=== PATIENT | female | born 1980 | race Caucasian/White ===

== ENCOUNTER 2016-08-17 12:17 | Emergency (ER) | payer BC ==
[2016-08-17] MEDS ORDERED: ONDANSETRON 4 MG TAB.RAPDIS PO ONE (12:27)
--- NOTE | 2016-08-17 12:27 | ER Document Report ---
ED Medical Screen (RME) - General Stated Complaint: FALL HEAD PAIN Notes: passed out and hit her head with ?LOC even though it was witnessed. admits to abdominal pain, constipation, last BM was friday and was hard. denies flatus, emesis, admits to nausea. sexually active, uses periguard, LMP one month ago I have greeted and performed a rapid initial assessment of this patient. A comprehensive ED assessment and evaluation of the patient, analysis of test results and completion of the medical decision making process will be conducted by additional ED providers. - Related Data Allergies/Adverse Reactions: No Known Allergies Allergy (Verified 08/17/16 12:23) Physical Exam - Vital signs Vitals: Temp Pulse Resp BP Pulse Ox 98.9 F 69 20 109/72 98 08/17/16 12:21 08/17/16 12:21 08/17/16 12:21 08/17/16 12:21 08/17/16 12:21 Course - Vital Signs Vital signs: Temp Pulse Resp BP Pulse Ox 98.9 F 69 20 109/72 98 08/17/16 12:21 08/17/16 12:21 08/17/16 12:21 08/17/16 12:21 08/17/16 12:21
[2016-08-17 13:08] LABS: ABSOLUTE BASOPHILS # (AUTO) 0.1 10^3/uL (0.0-0.2); ABSOLUTE EOSINOPHILS # (AUTO) 0.1 10^3/uL (0.0-0.6); ABSOLUTE LYMPHOCYTES (AUTO) 2.7 10^3/uL (0.5-4.7); ABSOLUTE MONOCYTES (AUTO) 0.4 10^3/uL (0.1-1.4); ABSOLUTE NEUT (AUTO) 3.5 10^3/uL (1.7-8.2); BASOPHILS % (AUTO) 0.8 % (0-2); EOSINOPHILS % (AUTO) 1.3 % (0-6); HEMATOCRIT 39.2 % (36.0-47.0); HEMOGLOBIN 13.4 g/dL (12.0-15.5); LYMPHOCYTES % (AUTO) 40.6 % (13-45); MEAN CORPUSCULAR HEMOGLOBIN 28.4 pg (27.0-33.4); MEAN CORPUSCULAR HGB CONC 34.1 g/dL (32.0-36.0); MEAN CORPUSCULAR VOLUME 83 fl (80-97); MONOCYTES % (AUTO) 5.6 % (3-13); RED CELL DISTRIBUTION WIDTH 15.4 % (11.5-14.0); SEGMENTED NEUTROPHILS % (AUTO) 51.7 % (42-78); WHITE BLOOD COUNT 6.7 10^3/uL (4.0-10.5)
[2016-08-17 13:13] LABS: APPEARANCE,URINE SLIGHTLY-CLOUDY; BILIRUBIN,URINE NEGATIVE (NEGATIVE); GLUCOSE, URINE NEGATIVE (NEGATIVE); KETONES,URINE NEGATIVE (NEGATIVE); LEUKOCYTE ESTERASE,URINE SMALL (NEGATIVE); NITRITE,URINE NEGATIVE (NEGATIVE); PROTEIN,URINE 30 mg/dL (NEGATIVE); URINE SPECIFIC GRAVITY 1.023
[2016-08-17 13:27] LABS: ALANINE AMINOTRANSFERASE 23 U/L (9-52); ALBUMIN 4.3 g/dL (3.5-5.0); ALKALINE PHOSPHATASE 69 U/L (38-126); ANION GAP 16 (5-19); ASPARTATE AMINO TRANSFERASE 25 U/L (14-36); BILIRUBIN,TOTAL 0.6 mg/dL (0.2-1.3); BLOOD UREA NITROGEN 19 mg/dL (7-20); CALCIUM 10.2 mg/dL (8.4-10.2); CARBON DIOXIDE 15 mmol/L (22-30); CHLORIDE 106 mmol/L (98-107); CREATININE RESULT 0.84 mg/dL (0.52-1.25); GLUCOSE 230 mg/dL (75-110); LIPASE 163.3 U/L (23-300); POTASSIUM 3.9 mmol/L (3.6-5.0); SODIUM 136.8 mmol/L (137-145); TOTAL PROTEIN 7.3 g/dL (6.3-8.2)
[2016-08-17] MEDS ORDERED: KETOROLAC TROMETHAMINE INJ/PF 30 MG/1 ML SDV IV ONE (13:52)
[2016-08-17] MEDS ORDERED: NORMAL SALINE 1000 ML 1,000 ML IV ONE (13:52)
[2016-08-17] MEDS ORDERED: MINERAL OIL 30 ML UDCUP PR ONE (13:52)
--- NOTE | 2016-08-17 13:56 | ER Document Report ---
ED GI/ - General Mode of Arrival: Ambulatory Information source: Patient TRAVEL OUTSIDE OF THE [place] IN LAST 30 DAYS: No - HPI Patient complains to provider of: Other - constipation Associated symptoms: Other - See above <LEONEL HDZ - Last Filed: 08/17/16 13:50> <TRACYGONZALO - Last Filed: 08/17/16 15:37> - General Chief Complaint: Constipation Stated Complaint: constipation Notes: Patient is a 36 year old female who presents to the emergency department complaining of constipation. Patient reports that she frequently has trouble with constipation and normally takes Miralax but has not taken any recently. Patient reports that today her abdominal pain worsened and she had an episode where she because diaphoretic, nauseated and passed out getting out of her car at [employer]. Patient also complains of tingling and numbness in her face, arms, and legs after the incident. Patient states that the abdominal pain is worst in her lower abdomen. PCP: Dr. Calin Goldstein (LEONEL HDZ) - Related Data Allergies/Adverse Reactions: No Known Allergies Allergy (Verified 08/17/16 12:23) Past Medical History - General Information source: Patient - Social History Smoking Status: Unknown if Ever Smoked Chew tobacco use (# tins/day): No Frequency of alcohol use: None Drug Abuse: None Family History: Reviewed & Not Pertinent Patient has suicidal ideation: No Patient has homicidal ideation: No <LEONEL HDZ - Last Filed: 08/17/16 13:50> Review of Systems - Review of Systems Constitutional: See HPI, Diaphoresis EENT: No symptoms reported Cardiovascular: No symptoms reported Respiratory: No symptoms reported Gastrointestinal: See HPI, Abdominal pain, Nausea, Constipation Genitourinary: No symptoms reported Female Genitourinary: No symptoms reported Musculoskeletal: No symptoms reported Skin: No symptoms reported Hematologic/Lymphatic: No symptoms reported Neurological/Psychological: See HPI, Lost consciousness, Numbness, Tingling -: Yes All other systems reviewed and negative <LEONEL HDZ - Last Filed: 08/17/16 13:50> Physical Exam - Vital signs Interpretation: Normal - General General appearance: Alert, Other - Acts uncomfortable, hyperventilates some - HEENT Head: Normocephalic, Atraumatic - Respiratory Respiratory status: No respiratory distress - Abdominal Inspection: Normal Distension: No distension Bowel sounds: Normal Tenderness: Nontender Organomegaly: No organomegaly - Extremities General upper extremity: Normal inspection General lower extremity: Normal inspection - Neurological Neuro grossly intact: Yes Cognition: Normal Orientation: AAOx4 Valier Coma Scale Eye Opening: Spontaneous Stefania Coma Scale Verbal: Oriented Valier Coma Scale Motor: Obeys Commands Valier Coma Scale Total: 15 Speech: Normal - Psychological Associated symptoms: Normal affect, Normal mood - Skin Skin Temperature: Warm Skin Moisture: Dry Skin Color: Normal <LEONEL HDZ - Last Filed: 08/17/16 13:50> Course - Laboratory Result Diagrams: 08/17/16 12:30 08/17/16 12:30 <LEONEL HDZ - Last Filed: 08/17/16 13:50> - Laboratory Result Diagrams: 08/17/16 12:30 08/17/16 12:30 - Diagnostic Test Radiology reviewed: Image reviewed, Reports reviewed - CT of the head and cervical spine ordered from triage are unremarkable. Abdominal films show constipation, predominantly in the left colon. <GONZALO MOLINA - Last Filed: 08/17/16 15:37> - Vital Signs Vital signs: Temp Pulse Resp BP Pulse Ox 98.9 F 69 20 109/72 98 08/17/16 12:21 08/17/16 12:21 08/17/16 12:21 08/17/16 12:21 08/17/16 12:21 - Laboratory Laboratory results interpreted by me: 08/17/16 08/17/16 08/17/16 12:30 12:30 12:30 RDW 15.4 H Sodium 136.8 L Carbon Dioxide 15 L Glucose 230 H Urine Protein 30 H Urine Urobilinogen 2.0 H Ur Leukocyte Esterase SMALL H Discharge <LEONEL HDZ - Last Filed: 08/17/16 13:50> <GONZALO MOLINA - Last Filed: 08/17/16 15:37> - Discharge Clinical Impression: Abdominal cramps, Vasovagal syncope Constipation Qualifiers: Constipation type: unspecified constipation type Qualified Code(s): K59.00 - Constipation, unspecified Condition: Stable Disposition: HOME, SELF-CARE Additional Instructions: Constipation: Constipation is a common problem. It is especially likely as you get older. Constipation is a common cause of abdominal pain, but sometimes causes no symptoms at all. Causes of constipation include certain medications, dehydration, diets, inactivity, and low-fiber intake. Rarely, it can be a symptom of underlying disease. The physician has evaluated you for this. Avoid constipation by eating a diet high in fiber, fruits, and vegetables. Drink plenty of liquids. Get regular exercise. If possible, avoid constipating medicines like narcotic pain medication. Some vitamin tablets can cause constipation. Stool softeners may be needed for difficult cases. An excellent stool softener is Konsyl which is available at [employer], [place]. Just add a teaspoon to a glass of pineapple or orange juice daily or twice a day if needed. Laxatives are useful for occasional constipation. You should use them only when necessary. Too-frequent use can make your bowels dependent on them. Some over the counter laxatives available without prescription are: Milk of Magnesia, 1-2 tablespoons twice a day Dulcolax, 5 mg pill or 10 mg suppository. Citrate of Magnesia, 4-5 ounces a day for a day or two For acute constipation, Fleet's Enemas and Dulcolax suppositories are helpful. Chronic, detention use of laxatives or enemas is not a good idea. Your bowel may become dependant on them. You do not need to have a bowel movement every day. Many people do fine with a bowel movement every three or four days. You should call your doctor or return for re-evaluation if you pass blood in the stool, or if you develop fever or increasing abdominal pain. DRINK PLENTY OF FLUIDS. TAKE MiraLax EVERY DAY. FOLLOW UP WITH YOUR DOCTOR IF NOT IMPROVING. RETURN TO THE EMERGENCY ROOM IF ANY NEW OR WORSENING SYMPTOMS. Referrals: CALIN GOLDSTEIN MD [Primary Care Provider] - Follow up as needed Scribe Attestation: 08/17/16 15:37 I personally performed the services described in the documentation, reviewed and edited the documentation which was dictated to the scribe in my presence, and it accurately records my words and actions. (GONZALO MOLINA) Scribe Documentation - Scribe Written by Fabrice:: fabrice Dahl, 08/17/16, [id number] acting as scribe for :: Tracy <LEONEL HDZ - Last Filed: 08/17/16 13:50>
[2016-08-17] MEDS ORDERED: MAGNESIUM CITRATE 296 ML BOTTLE PO ONE (15:09)
[2016-08-17 15:54] VITALS: BP 130/79
== END 2016-08-17 15:52 | disposition home or self-care (01) ==
LOC: ER 12:17 → EDBD 12:17 → ER 15:52
DX: R55 Syncope and collapse (principal); R10.9 Unspecified abdominal pain; K59.00 Constipation, unspecified; R11.0 Nausea
CPT/HCPCS: 99284; 96374; 36415; 83690; 85025; 81025; 80053; 81001; 74022; 70450; 72125; J3490 ×2; S0119; J1885; J7030